=== PATIENT | male | born 1990 | race Caucasian/White ===

== ENCOUNTER 2020-04-03 17:27 | Emergency (ER) | payer MEDICAID ==
[~2020-04-03] VITALS: Ht 177.8 cm; Wt 89.4 kg
[2020-04-03 17:37] VITALS: BP 158/91
--- NOTE | 2020-04-03 18:05 | NUR ---
SEEN AND EXAMINED BY JIMMIE GARZON
[2020-04-03] MEDS ORDERED: LIDOCAINE 1% INJ 50 ML MDV IJ ONE (18:27)
[2020-04-03] MEDS ORDERED: LIDOCAINE 2%-EPI 1:100,000 30 ML VIAL ONE (18:29)
--- NOTE | 2020-04-03 18:29 | NUR ---
JIMMIE MURPHY AT BEDSIDE FOR I&D.
[2020-04-03] MEDS ORDERED: LIDOCAINE 1%-EPI 1:100,000 50 ML VIAL IJ ONE (18:30)
[2020-04-03] MEDS ORDERED: IBUP-1957 PO (18:43)
[2020-04-03] MEDS ORDERED: AMOX-430 PO (18:43)
--- NOTE | 2020-04-03 19:00 | NUR ---
WOUND DRESSING DONE.
--- NOTE | 2020-04-03 19:00 | NUR ---
Patient discharged to home in stable condition. Written and verbal after care instructions given. Patient verbalizes understanding of instruction.
== END 2020-04-03 19:01 | disposition home or self-care (01) ==
LOC: EDSEX 17:32 → ER 17:32
DX: L05.01 Pilonidal cyst with abscess (principal); F17.210 Nicotine dependence, cigarettes, uncomplicated; Z79.899 Other long term (current) drug therapy
CPT/HCPCS: 10080; 99283; J3490 ×2

== ENCOUNTER 2020-05-08 18:09 | Emergency (ER) | payer MEDICAID, OTHER ==
[~2020-05-08] VITALS: Ht 177.8 cm; Wt 81.2 kg
[~2020-05-08 18:09] MED LIST: AMOX-430 PO; IBUP-1957 PO
--- NOTE | 2020-05-08 18:55 | NUR ---
THE PATIENT IS BIB SELF C/O L LOWER RIB PAIN FOR 2 MONS AND RATED PAIN 4/10. DENIES INJURY. DENIES SOB. RESPIRATION REGULAR AND UNLABORED. THE PATIENT IS PROVIDED WITH A WARM BLANKET. WILL CONTINUE TO MONITOR.
[2020-05-08 19:15] LABS: BASOPHILS % (AUTO) 0.6 % (0.0-2.0); EOSINOPHILS % (AUTO) 0.7 % (0.0-6.0); HEMATOCRIT 41 % (39-51); HEMOGLOBIN 14.1 g/dL (13.5-17.5); LYMPHOCYTES % (AUTO) 26.8 % (20.0-44.0); MEAN CORPUSCULAR HGB CONC 34 g/dl (31.0-36.0); MEAN CORPUSCULAR VOLUME 85 fL (80-96); MONOCYTES # (AUTO) 0.6 /CMM (0.1-1.30); MONOCYTES % (AUTO) 7.8 % (2.0-12.0); NEUTROPHILS # (AUTO) 4.8 /CMM (1.8-8.9); NEUTROPHILS % (AUTO) 64.1 % (43.0-81.0); PLATELET COUNT (AUTO) 224 /CMM (150-450); RED BLOOD CELL COUNT(AUTO) 4.82 MIL/uL (4.5-6.0); WHITE BLOOD COUNT (AUTO) 7.4 K/uL (4.3-11.0)
[2020-05-08] MEDS ORDERED: IV NS 0.9% 1,000 ML BAG IV ONE (19:30)
[2020-05-08 19:41] LABS: CALCIUM, SERUM 9.3 mg/dL (8.5-10.1); CARBON DIOXIDE 28 mmol/L (21-32); CHLORIDE 104 mmol/L (98-107); CREATININE 0.9 mg/dL (0.6-1.3); GLUCOSE 98 mg/dL (74-106); POTASSIUM 3.7 mmol/L (3.5-5.1); SODIUM SERUM 140 mmol/L (136-145); UREA NITROGEN, BLOOD 24 mg/dL (7-18)
[2020-05-08 19:47] LABS: ALANINE AMINOTRANSFERASE 69 U/L (12-78); ALKALINE PHOSPHATASE 88 U/L (46-116); ASPARTATE AMINOTRANSFERASE 24 U/L (15-37); BILIRUBIN,DIRECT 0.2 mg/dL (0.0-0.2); BILIRUBIN,TOTAL 1.1 mg/dL (0.2-1.0); TOTAL PROTEIN, SERUM 8.2 g/dL (6.4-8.2)
[2020-05-08] MEDS ORDERED: IOHEXOL-350 100 ML VIAL IV ONE (20:02)
[2020-05-08] MEDS ORDERED: IV NS 0.9% 250 ML IV ONE (20:03)
--- NOTE | 2020-05-08 20:14 | NUR ---
BACK FROM CTA
[2020-05-08] MEDS ORDERED: IBUP-1957 PO (20:38)
[2020-05-08] MEDS ORDERED: KETOROLAC TROMETHAMINE INJ 30 MG/ML VIAL ONE (20:42)
--- NOTE | 2020-05-08 20:52 | NUR ---
Pt is medically stable for D/C. IV removed. Catheter intact and site benign. Pressure and 4x4 applied to site. No bleeding noted.Patient discharged to home in stable condition. Rx and Written and verbal after care instructions given. Patient verbalizes understanding of instruction.
[2020-05-08] MEDS ORDERED: KETOROLAC TROMETHAMINE INJ 30 MG/ML VIAL IV ONE (21:00)
[2020-05-08 21:11] VITALS: BP 122/87
== END 2020-05-08 21:12 | disposition home or self-care (01) ==
LOC: ER 18:11
DX: R07.89 Other chest pain (principal); Z79.899 Other long term (current) drug therapy
CPT/HCPCS: 36415; 71045; 71275; 80048; 80076; 84484; 85025; 85378; 93005; 96361; 96374; 99285; J1885; J7030; J7050; Q9967

== ENCOUNTER 2020-12-16 21:30 | Emergency (ER) | payer MEDICAID, OTHER ==
[~2020-12-16] VITALS: Ht 177.8 cm; Wt 86.2 kg
[2020-12-16] MEDS ORDERED: OXYC-128 PO (22:21)
[2020-12-16] MEDS ORDERED: oxyCODONE/APAP (5/325 MG) 1 UDTAB TABLET ONE (22:21)
--- NOTE | 2020-12-16 22:22 | NUR ---
Patient discharged to home in stable condition. Written and verbal after care instructions given. Patient verbalizes understanding of instruction. RX given
[2020-12-16 22:23] VITALS: BP 133/70
[2020-12-16] MEDS ORDERED: oxyCODONE/APAP (5/325 MG) 1 UDTAB TABLET PO ONE (22:30)
== END 2020-12-16 22:21 | disposition home or self-care (01) ==
LOC: ER 21:40
DX: K08.89 Other specified disorders of teeth and supporting structures (principal); F17.200 Nicotine dependence, unspecified, uncomplicated; Z79.899 Other long term (current) drug therapy

== ENCOUNTER 2021-02-15 14:08 | Emergency (ER) | payer MEDICAID ==
[~2021-02-15] VITALS: Ht 167.6 cm; Wt 72.6 kg
[~2021-02-15 14:08] MED LIST changes: +OXYC-128 PO
--- NOTE | 2021-02-15 14:08 | NUR ---
C/O HEADACHE X4-5DAYS & NASAL CONGESTION, S/P COVID + 10 DAYS AGO, TESTED NEGATIVE TODAY. PT VITALS ARE WITHIN NORMAL LIMITS. BREATHING IS EVEN AND UNLABORED. PT AWAITING MD WRIGHT.
--- NOTE | 2021-02-15 15:10 | NUR ---
CHRISTY ESTABLISHED R COOKIE 18G.
[2021-02-15 15:13] LABS: BASOPHILS % (AUTO) 0.2 % (0.0-2.0); EOSINOPHILS % (AUTO) 0.1 % (0.0-6.0); HEMATOCRIT 38 % (39-51); HEMOGLOBIN 12.7 g/dL (13.5-17.5); LYMPHOCYTES # (AUTO) 1.2 K/uL (0.8-4.8); LYMPHOCYTES % (AUTO) 16.8 % (20.0-44.0); MEAN CORPUSCULAR HGB CONC 33 g/dl (31.0-36.0); MEAN CORPUSCULAR VOLUME 85 fL (80-96); MONOCYTES # (AUTO) 0.5 K/uL (0.1-1.30); MONOCYTES % (AUTO) 6.8 % (2.0-12.0); NEUTROPHILS # (AUTO) 5.5 K/uL (1.8-8.9); NEUTROPHILS % (AUTO) 76.1 % (43.0-81.0); PLATELET COUNT (AUTO) 290 K/uL (150-450); RED BLOOD CELL COUNT(AUTO) 4.44 MIL/uL (4.5-6.0); WHITE BLOOD COUNT (AUTO) 7.3 K/uL (4.3-11.0)
--- NOTE | 2021-02-15 15:17 | NUR ---
PT TAKEN TO CT
[2021-02-15] MEDS ORDERED: IV NS 0.9% 250 ML IV ONE (15:19)
[2021-02-15] MEDS ORDERED: IOHEXOL-300 100 ML VIAL IV ONE (15:19)
--- NOTE | 2021-02-15 15:27 | NUR ---
PT BACK FROM CT
[2021-02-15 15:29] LABS: CALCIUM, SERUM 8.6 mg/dL (8.5-10.1); CREATININE 0.8 mg/dL (0.6-1.3); POTASSIUM 3.8 mmol/L (3.5-5.1)
[2021-02-15] MEDS ORDERED: AMOX-430 PO (16:14)
--- NOTE | 2021-02-15 16:21 | NUR ---
IV removed. Catheter intact and site benign. Pressure and 4x4 applied to site. No bleeding noted.Patient discharged to home in stable condition. Written and verbal after care instructions given. Patient verbalizes understanding of instruction.
[2021-02-15 16:22] VITALS: BP 129/73
== END 2021-02-15 16:22 | disposition home or self-care (01) ==
LOC: ER 14:42
DX: J32.9 Chronic sinusitis, unspecified (principal); R51.9 Headache, unspecified
CPT/HCPCS: 36415; 70470; 80048; 85025; 99285; J7050; Q9967